=== PATIENT | male | born 1980 | race Caucasian/White ===

== ENCOUNTER 2017-01-10 20:59 | Emergency (ER) | payer SELFPAY ==
[2017-01-10 21:13] VITALS: BP 125/66; BMI 23.7
[2017-01-10] MEDS ORDERED: AMOXIL CAP 500 MG PO ONE ×2 (21:38→21:48)
--- NOTE | 2017-01-10 21:38 | DR.TOOTHHP ---
HPI - Time Seen Time seen: 21:33 - Primary Care Physician Primary Care Physician: NLD - Complaints Chief Complaint Doctors Comments: History as stated. Patient admits pain of 9 , sharp, constant, onset one day ago, not relieved by ibuprofen. Chief Complaint:: LOWER LEFT TOOTH PAIN; SWELLING TO LEFT LOWER JAW AND PAIN TO LEFT EAR. STARTED WEDNESDAY EVENING WITH WORSENING PAIN AND SWELLING. Self Treatment fo Chief Complaint: STARTED AMOXICILLIN YESTERDAY; HAS TAKEN GOODY POWDER AND IBUPROFEN FOR PAIN. - Source History Provided: Patient - Mode of Arrival Mode of Arrival: Ambulatory - Timing Onset of Chief Complaint: 01/07/17 PMH - PMH Past Medical History: Yes Past Medical History Comment: HEART MURMUR Past Surgical History: Yes Surgical History: Appendectomy - Family History History of Family Medical Conditions: Yes Family Medical History: Hypertension - Social History Type of Tobacco Use: Cigarettes Alcohol Use: None Do you use any recreational Drugs:: No Lives With: Family Lives Where: Home - infectious screening In the last 2 months have you had wt loss of >10#?: NO Have you had fever, night sweats or hemotysis?: No Have you traveled outside the country in the last 6 months?: No Isolation: Standard ROS - Review of Systems Eyes: No Symptoms Reported ENTM: Ear Pain, Mouth Swelling Respiratoy: No Symptoms Reported Cardiovascular: No Symptoms Reported Gastrointestinal/Abdominal: No Symptoms Reported Genitourinary: No Symptoms Reported Neurological: No Symptoms Reported Musculoskeletal: No Symptoms Reported Integumentary: No Symptoms Reported Hematologic/Lymphatic: No Symptoms Reported Endocrine: No Symptoms Reported Psychiatric: No Symptoms Reported All Other Systems: Reviewed and Negative PE - Vital Signs Vitals: Temperature 97.8 F Pulse Rate 61 Respiratory Rate 20 Blood Pressure 125/66 O2 Sat by Pulse Oximetry 99 - General Limitations: No Limitations General Appearance: Alert, In No Apparent Distress - Head Head Exam: Normal Inspection, Atraumatic - Eyes Eye exam: Normal Appearance, PERRL, EOMI - ENT ENT Exam: Normal Exam External Ear Exam: Normal External Inspection TM/Canal Exam: Bilateral Normal Nose Exam: Normal Nose Exam Mouth Exam: Normal Inspection Teeth Exam: Dental Caries (#19), Gingival Swelling - Neck Neck Exam: Normal Inspection, Full ROM - Chest Chest Inspection: Normal Inspection - Respiratory Respiratory Exam: Normal Lung Sounds Bilat Respiratory Exam: Bilateral Clear to Auscultation - Cardiovascular Cardiovascular Exam: Regular Rate, Normal Rhythm - Abdominal Exam Abdominal Exam: Normal Inspection Abdominal Tenderness: negative: RUQ, RLQ, LUQ, LLQ, Epigastrium, Suprapubic, Diffuse, Mild, Moderate, Severe, Other - Extremities Extremities Exam: Normal Inspection - Back Back Exam: Normal Inspection - Neurologic Neurological Exam: Alert, Oriented X3, CN II-XII Intact - Psychiatric Psychiatric Exam: Normal Affect, Normal Mood - Skin Skin Exam: Warm, Dry, Intact Course - Treatment Treatment: amoxicillin 1gm, toradol 60mg IM - Diagnosis Discharge Problem: Tooth abscess - Discharge Plan Condition: Stable - Follow ups/Referrals Follow ups/Referrals: NFD,None [Primary Care Provider] - 3 days - Instructions
[2017-01-10] MEDS ORDERED: TORADOL 60 MG VIAL IM ONE (21:39)
[2017-01-10] MEDS ORDERED: TORADOL 30 MG VIAL ONE (21:47)
== END 2017-01-10 22:10 | disposition home or self-care (01) ==
LOC: ER 20:59
DX: K04.7 Periapical abscess without sinus (principal)
CPT/HCPCS: 96372; 99282; J1885